=== PATIENT | female | born 1960 | race Caucasian/White ===

== ENCOUNTER 2019-05-01 16:40 | Emergency (ER) | payer MEDICAID ==
[~2019-05-01] VITALS: Ht 154.9 cm; Wt 127.3 kg
[2019-05-01 17:06] VITALS: Ht 154.9 cm; Wt 127.3 kg
[2019-05-01] MEDS ORDERED: ZOFRAN ODT4 MG/UDTAB PO (19:38)
[2019-05-01] MEDS ORDERED: HYDROCODON-ACE1 EA10 PO (19:38)
[2019-05-01 19:55] VITALS: BP 127/55
[2019-05-03 06:48] VITALS: Ht 154.9 cm; Wt 127.3 kg
== END 2019-05-01 19:56 | disposition home or self-care (01) ==
LOC: D.ER 16:40
DX: S82.831A Other fracture of upper and lower end of right fibula, initial encounter for closed fracture (principal); W19.XXXA Unspecified fall, initial encounter; Y93.9 Activity, unspecified; Y92.9 Unspecified place or not applicable; E11.9 Type 2 diabetes mellitus without complications; I10 Essential (primary) hypertension; J44.9 Chronic obstructive pulmonary disease, unspecified; K21.9 Gastro-esophageal reflux disease without esophagitis

== ENCOUNTER 2019-05-03 05:17 | Day surgery (SDC) | payer MEDICAID ==
[~2019-05-03] VITALS: Ht 154.9 cm; Wt 129.3 kg
[~2019-05-03 05:17] MED LIST: HYDROCODON-ACE1 EA10 PO; ZOFRAN ODT4 MG/UDTAB PO
[2019-05-03 05:53] LABS: BASOPHILS 0.3 % (0-2); EOSINOPHILS 4.9 % (0-7); HEMATOCRIT 34.4 % (36.0-48.0); HEMOGLOBIN 10.5 g/dL (12-16); IMMATURE GRANULOCYTES 0.6 % (0-5); LYMPHOCYTES 22.9 % (15-50); MCH 26.6 pg (26.0-34.0); MCHC 30.5 g/dL (31.0-37.0); MCV 87.1 fL (80.0-100.0); MEAN PLATELET VOLUME 9.7 fL (7.4-10.4); NEUTROPHILS 67.3 % (40-80); PLATELET COUNT 101 10x3/uL (130-400); RBC 3.95 10x6/uL (4.00-5.40); WBC 3.3 10x3/uL (4.8-10.8)
[2019-05-03 05:57] LABS: ANION GAP 10.4 mmol/L (8-16); CALCIUM 9.4 mg/dL (8.5-10.1); CARBON DIOXIDE 31.9 mmol/L (21.0-32.0); CREATININE - SERUM 1.7 mg/dL (0.6-1.3); POTASSIUM - SERUM 4.3 mmol/L (3.5-5.1)
[2019-05-03] MEDS ORDERED: NEURONTIN800 MG PO (06:36)
[2019-05-03] MEDS ORDERED: PLAVIX75 MG PO (06:37)
[2019-05-03] MEDS ORDERED: SINEQUAN100 MG PO (06:37)
[2019-05-03] MEDS ORDERED: NOVOLOG100 UNIT/1 SC (06:39)
[2019-05-03] MEDS ORDERED: PAXIL40 MG PO (06:40)
[2019-05-03] MEDS ORDERED: TORSEMIDE20 MG PO (06:40)
[2019-05-03] MEDS ORDERED: METOPROLOL TART25 MG PO (06:41)
[2019-05-03 06:48] VITALS: BP 158/62; Ht 154.9 cm; Wt 129.3 kg
--- NOTE | 2019-05-03 07:01 | NUR ---
PER [facility] IN [facility] IS MIXING ANTIBIOTIC AND WILL TAKE TO SURGERY
--- NOTE | 2019-05-03 08:30 | NUR ---
PT HAD DIFFICCULTY MOVING HERSELF TO OPERATIVE BED. OR STAFF HAD TO MOVE PT ON ROLLER BOARD. POOR HYGINE NOTED. PT MAY NEED ASSISTANCE WITH ADLS DUE TO OBESITY, MEDICAL CONDITIONS, AND ANKLE FRACTURE.
[2019-05-03] MEDS ORDERED: ZOFRAN ODT4 MG/UDTAB PO (08:35)
[2019-05-03] MEDS ORDERED: BAYER CHEWABLE81 MG PO (08:35)
[2019-05-03] MEDS ORDERED: PERCOCET 10-321 EAC1 PO (08:36)
[2019-05-03] MEDS ORDERED: VISTARIL50 MG PO (08:36)
--- NOTE | 2019-05-03 10:53 | OP ---
PATIENT NAME: LASHA OBRIEN MEDICAL RECORD: [id number] :62 LOCATION:D.OPS ADMISSION DATE: SURGEON: BIPIN WOLFE DO DATE OF OPERATION: 05/03/2019 PROCEDURE PERFORMED: Left distal fibula open reduction internal fixation. PREOPERATIVE DIAGNOSIS: Left closed displaced distal fibula fracture. POSTOPERATIVE DIAGNOSIS: Left closed displaced distal fibula fracture. INDICATIONS: Ms. Obrien is a 58-year-old female who apparently had a distal fibula fracture prior to this and was wearing a boot, it caught on something, she externally rotated her foot, felt a pop. X-rays were taken at the ER. She was seen to have the fracture. She was seen in my clinic yesterday. I informed her that the best, due to the displacement of the fracture, that we should fix it. She is aware of the risks including infection, bleeding, damage to superficial peroneal nerve and other nerves in the area, continued pain, malunion, nonunion, blood clots, and even . She signed the consent. SURGEON: Bipin Wolfe DO DESCRIPTION OF PROCEDURE: The patient received a block by anesthesia in the preoperative area and was taken to the operative suite, laid in supine position, given general anesthetic and LMA was placed. She was given 2 grams of Ancef preoperatively. The left lower extremity was then prepped and draped in sterile fashion. Timeout was performed, everyone was in agreeance with the correct side, site, patient and procedure. We then began by making an incision on the lateral aspect of the ankle. Careful dissection was made down to the fibula. Fibula was cleaned off and the fracture site was cleaned out. The plate was then placed and a clamp was used to reduce the fracture to the plate. We then saw the plate was in good position on AP and lateral x-ray and then did 4 distal locking screws and 3 screws in the shaft. This was in good position and we did change out one locking screw as it was a little long. At that point, we stressed the ankle and ensured there was no widening of the medial clear space and then got a lateral and noticed the plate was in good position as well. The fracture was well reduced also and had good fixation. We then let the tourniquet down. Site was irrigated and closed by Zeb Gatica, certified surgical or first assist registered nurse. He closed it with 2-0 Vicryl in an inverted interrupted fashion on the skin and a ZipLine placed on the skin, then placed a 4 x 30 splint, it was dressed with Adaptic, 4 x 4s, ABD on the heel and over the incision and cast padding and then put the splint on and secured it in place with 6-inch Eric wrap. She was then awakened and taken to recovery in stable condition. BLOOD LOSS: Minimal. COMPLICATIONS: None. TOURNIQUET TIME: 25 minutes. We did exsanguinate the left lower extremity prior to starting and tourniquet was inflated to 350 mmHg and was let down 25 minutes. TRANSINT:[id number] Voice Confirmation ID: [id number] DOCUMENT ID: [id number] OPERATIVE REPORT [id number] LASHA OBRIEN MICHAEL D, DO at 1053 CC: [id number] DICTATION DATE: 05/03/19 0847 [employer] MAINTENANCE INSPECTOR: 05/03/19 1034 [facility] [address] [place] [address]
== END 2019-05-03 11:15 | disposition home or self-care (01) ==
LOC: D.OPS 05:17
PROVIDERS: Anesthesiology; ATTEND Orthopaedic Surgery
DX: S82.62XA Displaced fracture of lateral malleolus of left fibula, initial encounter for closed fracture (principal); X58.XXXA Exposure to other specified factors, initial encounter; E11.9 Type 2 diabetes mellitus without complications; Z79.4 Long term (current) use of insulin; K21.9 Gastro-esophageal reflux disease without esophagitis